=== PATIENT | female | born 1955 | race Caucasian/White ===

== ENCOUNTER → 2019-01-27 11:18 | Outpatient (CLI) | payer MEDICARE, OTHER, SELFPAY ==
--- NOTE | 2019-01-27 | DI.MG.S_ITS ---
BILATERAL DIGITAL SCREENING MAMMOGRAM 3D/2D WITH CAD: 01/27/2019 CLINICAL: Routine screening. Family history of breast cancer. Comparison is made to exams dated: 01/31/2016 mammogram, 01/29/2015 mammogram, 01/23/2014 mammogram, and 12/01/2011 mammogram - [facility]. The tissue of both breasts is heterogeneously dense. This may lower the sensitivity of mammography. Current study was also evaluated with a Computer Aided Detection (CAD) system. There is a round equal density focal asymmetry in the right breast at 12 o'clock middle depth. No other significant masses, calcifications, or other findings are seen in either breast. IMPRESSION: INCOMPLETE: NEEDS ADDITIONAL IMAGING EVALUATION The round equal density focal asymmetry in the right breast is indeterminate. A diagnostic mammogram and ultrasound is recommended. This exam was interpreted at Station ID: [id number]. NOTE: For mammograms, a report in lay terms will be sent to the patient. Approximately 15% of breast malignancies will not be visualized mammographically. In the management of a palpable breast mass, a negative mammogram must not discourage biopsy of a clinically suspicious lesion. Electronically Signed By: Taryn moore/jelena:01/27/2019 12:06:56 letter sent: Additional Imaging Needed ACR BI-RADS Category 0: Incomplete 3340F
== END ==
PROVIDERS: PCP Internal Medicine; Visit Provider Internal Medicine
DX: Z12.31 Encounter for screening mammogram for malignant neoplasm of breast (principal); Z80.3 Family history of malignant neoplasm of breast
CPT/HCPCS: 77063; 77067

== ENCOUNTER → 2019-02-13 13:32 | Outpatient (CLI) | payer MEDICARE, OTHER, SELFPAY ==
--- NOTE | 2019-02-13 | DI.US.S_ITS ---
ULTRASOUND OF RIGHT BREAST: 02/13/2019 CLINICAL: Patient returns today to evaluate a focal asymmetry in the right breast. Comparison is made to exams dated: 02/13/2019 mammogram, 01/27/2019 mammogram, 01/31/2016 mammogram, 01/29/2015 mammogram, and 01/23/2014 mammogram - [facility]. Color flow and real-time ultrasound of the right breast were performed. Kuhn scale images of the real-time examination were reviewed. There is a benign 0.7 cm x 0.7 cm x 0.7 cm round cyst with debris in the right breast at 11 o'clock middle depth 6 cm from the nipple. This correlates with mammography findings of a new asymmetry. Color flow imaging demonstrates that there is no vascularity present. There also is a stable benign 0.6 cm x 0.6 cm x 0.5 cm cyst with debris in the right breast at 12 o'clock posterior depth 8 cm from the nipple. This also correlates with mammography findings. Color flow imaging demonstrates that there is no vascularity present. IMPRESSION: BENIGN There is no sonographic evidence of malignancy. The 0.7 cm cyst with debris in the right breast at 11 o'clock middle depth corresponds to the new screening mammogram finding and is benign. The 0.6 cm cyst with debris in the right breast at 12 o'clock posterior depth is stable and benign. Return to annual mammogram screening schedule is recommended. Findings and recommendations were conveyed to the patient at time of exam. This exam was interpreted at Station ID: [id number]. Electronically Signed By: Taryn moore/:02/13/2019 17:11:26 letter sent: Normal Exam Ultrasound BI-RADS: 2 Benign
--- NOTE | 2019-02-13 | DI.MG.S_ITS ---
UNILATERAL RIGHT DIGITAL DIAGNOSTIC MAMMOGRAM 3D/2D WITH ADDITIONAL VIEWS: 02/13/2019 CLINICAL: Additional evaluation requested from prior study. Comparison is made to exams dated: 01/27/2019 mammogram, 01/31/2016 mammogram, and 01/29/2015 mammogram - [facility]. The tissue of right breast is heterogeneously dense. This may lower the sensitivity of mammography. There is a new round 9 mm equal density focal asymmetry in the right breast at 11 o'clock middle depth. This is seen in additional views. A 7 mm round mass has been stable compared to prior studies. No other significant masses or calcifications are seen in the breast. IMPRESSION: INCOMPLETE: NEEDS ADDITIONAL IMAGING EVALUATION The round equal density focal asymmetry in the right breast remains indeterminate. An ultrasound is recommended. This was performed immediately following this exam. This exam was interpreted at Station ID: [id number]. NOTE: For mammograms, a report in lay terms will be sent to the patient. Approximately 15% of breast malignancies will not be visualized mammographically. In the management of a palpable breast mass, a negative mammogram must not discourage biopsy of a clinically suspicious lesion. Electronically Signed By: Taryn moore/:02/13/2019 17:07:00 ACR BI-RADS Category 0: Incomplete 3340F
== END ==
PROVIDERS: PCP Internal Medicine; Visit Provider Internal Medicine
DX: R92.8 Other abnormal and inconclusive findings on diagnostic imaging of breast (principal); N60.01 Solitary cyst of right breast
CPT/HCPCS: 76642; 77065; G0279

== ENCOUNTER → 2020-01-29 08:01 | Outpatient (CLI) | payer MEDICARE, OTHER, SELFPAY ==
--- NOTE | 2020-01-29 08:16 | DI.MG.S_ITS ---
Patient Name: DONNA ARAIZA date: 1955 Sex: F Attending Physician: Xochitl Indications: Date: 01/29/2020 08:14 At the request of: ABHIJEET ALFONSO Procedure: MM screening mammo BI BILATERAL DIGITAL SCREENING MAMMOGRAM 3D/2D WITH CAD: 01/29/2020 CLINICAL: Routine screening. Family history of breast cancer. Comparison is made to exams dated: 01/27/2019 mammogram, 01/31/2016 mammogram, 01/29/2015 mammogram, 02/13/2019 ultrasound, and 01/23/2014 mammogram - [facility]. The tissue of both breasts is heterogeneously dense. This may lower the sensitivity of mammography. Current study was also evaluated with a Computer Aided Detection (CAD) system. No significant masses, calcifications, or other findings are seen in either breast. There has been no significant interval change. IMPRESSION: NEGATIVE There is no mammographic evidence of malignancy. A 1 year screening mammogram is recommended. This exam was interpreted at Station ID: [id number]. NOTE: For mammograms, a report in lay terms will be sent to the patient. Approximately 15% of breast malignancies will not be visualized mammographically. In the management of a palpable breast mass, a negative mammogram must not discourage biopsy of a clinically suspicious lesion. Electronically Signed By: Franco burch/jelena:01/29/2020 10:48:08 letter sent: Normal Exam ACR BI-RADS Category 1: Negative 3341F
== END ==
PROVIDERS: PCP Internal Medicine; Referring Provider Internal Medicine; Visit Provider Internal Medicine
DX: Z12.31 Encounter for screening mammogram for malignant neoplasm of breast (principal); Z80.3 Family history of malignant neoplasm of breast
CPT/HCPCS: 77063; 77067

== ENCOUNTER → 2020-03-11 08:31 | Outpatient (CLI) | payer MEDICARE, OTHER, SELFPAY ==
--- NOTE | 2020-03-11 | DI.MRI.S_ITS ---
PROCEDURE: MR SHOULDER RT WO CON INDICATIONS: OTHER SHOULDER LESIONS TECHNIQUE: Noncontrast oblique coronal T2 fast spin echo with fat saturation, oblique sagittal T1 spin echo and T2 fast spin echo with fat saturation, axial T1 spin echo and T2 fast spin echo with fat saturation through the shoulder. COMPARISON: [facility], CR, XR SHOULDER 2+ VIEWS RIGHT, 03/04/2020, 14:38. FINDINGS: Image quality: Excellent. Rotator cuff: There is moderate to severe partial thickness bursal sided tearing in the distal supraspinatus at its insertion involving posterior fibers. This measures approximately 0.5 cm in anteroposterior dimension. There is mild bursal sided partial-thickness tearing in the distal infraspinatus at its insertion. The subscapularis demonstrates moderate articular surface partial tearing distally at its insertion. No discrete full-thickness rotator cuff tear or tendon retraction. The teres minor appears intact. Sagittal images demonstrate no fatty muscle atrophy. Bones and bursae: No bone marrow contusions or fractures. There is moderate to severe acromioclavicular joint degeneration. The acromion demonstrates slight lateral downsloping, without an os acromiale. A small amount of subacromial-subdeltoid bursal fluid is present as well as mild edema along the anterior aspect of the supraspinatus muscle. Capsule and soft tissues: In the absence of intra-articular contrast, the labrum and glenohumeral ligaments appear intact. The long head of the biceps tendon demonstrates slight medial subluxation secondary to partial tearing of the subscapularis tendon . There is associated mild tendinopathy proximally but no evidence of rupture. IMPRESSION: 1. Moderate to severe partial-thickness bursal sided tearing in the distal supraspinatus. Mild bursal sided partial-thickness tearing is also demonstrated in the infraspinatus as well as articular sided partial-thickness tearing in the subscapularis. No discrete full-thickness rotator cuff tear or tendon retraction. 2. Moderate to severe acromioclavicular joint degeneration with a small amount of subacromial/subdeltoid bursal fluid. 3. Slight medial subluxation of the biceps tendon secondary to partial tearing of the subscapularis. Dictated by: Sid Perez M.D. on 03/11/2020 at 14:35 Approved by: Sid Perez M.D. on 03/11/2020 at 14:49
== END ==
PROVIDERS: PCP Internal Medicine; Referring Provider Orthopaedic Surgery; Visit Provider Orthopaedic Surgery
DX: M75.81 Other shoulder lesions, right shoulder (principal); M75.111 Incomplete rotator cuff tear or rupture of right shoulder, not specified as traumatic; M19.011 Primary osteoarthritis, right shoulder
CPT/HCPCS: 73221

== ENCOUNTER → 2020-07-15 10:47 | Outpatient (CLI) | payer MEDICARE, OTHER, SELFPAY ==
[2020-07-15 12:01] LABS: Erythrocyte Sedimentation Rate 15 MM/HR (0-20)
[2020-07-15 12:13] LABS: C-Reactive Protein Quant 1.6 mg/dL (<1.0)
== END ==
PROVIDERS: PCP Internal Medicine; Referring Provider Orthopaedic Surgery; Visit Provider Orthopaedic Surgery
DX: M25.511 Pain in right shoulder (principal)
CPT/HCPCS: 36415; 85651; 86140

== ENCOUNTER 2021-02-06 19:05 | Emergency (ER) | payer MEDICARE, OTHER, SELFPAY ==
[2021-02-06 19:07] VITALS: BP 175/78; PULSE 70; RESP 18; TEMP 36.8; O2SAT 98
[2021-02-06 20:10] VITALS: BP 194/91; PULSE 71; RESP 22; O2SAT 100
--- NOTE | 2021-02-06 20:25 | ED.BACK ---
HPI - Back Pain/Injury General Chief Complaint: Back Pain/Injury Stated Complaint: BACK PAIN Time Seen by Provider: 02/06/21 20:24 Source: patient Limitations: no limitations History of Present Illness HPI Narrative: This is a 66-year-old female comes with complaint of left-sided back pain. Patient states she has had symptoms for the last 2-3 weeks. Patient states she has been lifting and moving a lot of boxes they sold and other home then moved into a travel trailer and rhythm moving their lungs again. Patient states it is not midline it is more on the left side. It is spasming type pain that is worse with movement. She states when she sleeps at night her pain resolved so when she 1st wakes up in the morning and tries to get up and starts moving she has spasm and pain on that left side. She has been trying ibuprofen with minimal improvement. She wishes to avoid narcotics. She has had lower lumbar diskectomy surgery in 1995. She states this pain feels different. She has chronic calf and left foot numbness although she states it is a little bit worse than normal. She has not had any new saddle anesthesia. No loss of bowel or bladder control. She feels like that left leg is a little bit weaker but is able to ambulate. She is on medications for asthma and statin. Related Data Home Medications Medication Instructions Recorded Confirmed [MULTIVITAMIN] #0 12/14/10 11/22/18 albuterol sulfate 90 mcg/actuation 1 puff INH PRN PRN #8 gm 01/31/16 11/22/18 aerosol inhaler (Ventolin HFA) beclomethasone dipropionate 80 3 - 4 puff INH BID #1 inh 01/31/16 11/22/18 mcg/actuation aerosol inhaler (Qvar) conjugated estrogens 0.625 mg/gram 1 appful VAGINAL QWEEK #30 gm 01/31/16 11/22/18 vaginal cream (Premarin) salmeterol 50 mcg/dose blister 1 puff INH BID #0 inh 01/31/16 11/22/18 powder for inhalation (Serevent Diskus) simvastatin 20 mg tablet (Zocor) 20 mg PO HS #0 tab 01/31/16 11/22/18 Previous Rx's Medication Instructions Recorded prednisone 50 mg tablet 50 mg PO DAILY #5 tab 02/06/21 Allergies Allergy/AdvReac Type Severity Reaction Status Date / Time cefuroxime [CEFUROXIME] Allergy Mild Verified 11/22/18 10:02 neomycin [NEOMYCIN] Allergy Unknown EAR Verified 11/22/18 10:02 DROPS...UNSURE scopolamine [SCOPOLAMINE] AdvReac Intermediate HALLUCINATI Verified 11/22/18 10:02 ON codeine [CODEINE] AdvReac Mild VOMITING Verified 11/22/18 10:02 Review of Systems Review of Systems ROS Unobtainable: All systems reviewed & are unremarkable except as noted in HPI and below Patient History Social History Smoking Status: Never smoker Smoking Status: Never smoker Exam Narrative Exam Narrative: GENERAL: Alert and oriented x three, female in mild distress. Patient is increased pain with any sort of movement. She is lying on her back with her knees flex and feet flat on the cornea. HEENT: Head normocephalic, atraumatic, EOMI, pupils reactive, face symmetric, moist mucous membranes NECK: Supple, full range of motion CARDIOVASCULAR: Regular rate and rhythm without murmurs, rubs or gallops. RESPIRATORY: Breath sounds equal bilaterally, no wheezes rales or rhonchi. ABDOMEN: Soft, nontender. Normoactive bowel sounds all 4 quadrants. No guarding or rebound, rigidity, no mass : No CVA tenderness BACK: No cervical, thoracic or lumbar vertebral point tenderness. No saddle anesthesia. Patient has decreased range of motion. Patient's gait is normal. Rectal exam is deferred. Muscle strength is 5/5 in lower extremities, DTRs are 2/4 and lower extremities. Dorsalis pedis and tibialis pulses are 2+ and lower extremities. Sensation is intact in the lower extremities to light touch. EXTREMITIES: Normal range of motion, no clubbing or edema. Neurovascularly intact NEUROLOGICAL: Cranial nerves II through XII grossly intact. Moving all extremities. Patient had normal gait into the department. SKIN: Warm, dry, no petechiae, no rashes or lesions. Initial Vital Signs Initial Vital Signs: Vital Signs Temperature 98.3 F 02/06/21 19:07 Pulse Rate 70 02/06/21 19:07 Respiratory Rate 18 02/06/21 19:07 Blood Pressure 175/78 H 02/06/21 19:07 Pulse Oximetry 98 02/06/21 19:07 Course Orders Ordered: Discontinued Medications Diazepam (Diazepam 5 Mg Tablet) 10 mg PO NOW ONE Stop: 02/06/21 20:43 Last Admin: 02/06/21 20:47 Dose: 10 mg Documented by: PRASANTH Ketorolac Tromethamine (Ketorolac 30 Mg/Ml Vial) 30 mg IM NOW ONE Stop: 02/06/21 20:43 Last Admin: 02/06/21 20:47 Dose: 30 mg Documented by: PRASANTH Vital Signs Vital signs: Vital Signs - 8 hr 02/06/21 20:10 02/06/21 21:40 Pulse Rate 71 79 Respiratory Rate 22 18 Blood Pressure 194/91 H 185/83 H Pulse Oximetry 100 98 MDM - Back Pain/Injury MDM Narrative Medical decision making narrative: This is a 66-year-old female comes in with complaint of left lower back pain/spasm. Patient has had prior mid lower back pain with chronic paresthesias in the left foot and calf which are slightly worsened. Her exam does not show any red flag changes. Patient has been lifting and moving many boxes for the last 2-3 weeks which seems to have exacerbated her symptoms. After discussion at this time and felt the patient requires x-ray imaging and patient also feels comfortable with this. Was given Toradol as well as Valium which she found helpful. She has had sciatica in the past and feels like this is also flaring was given a course of steroids. Valium with plan to continue with ibuprofen and Tylenol as needed for pain. Discharge Plan Departure Patient Disposition: Home Clinical Impression: Lumbar back pain Instructions: DI for Low Back Pain Activity Restrictions/Additional Instructions: Follow-up with your primary care physician for recheck. You may take ibuprofen up to 800 mg every 8 hours and/or Tylenol up to a 1000 mg every 8 hours as needed for pain. Take Valium 1 tablet every 8 hours as needed for muscle spasm. This medication can make you sleepy do not drive, perform hazardous activities or make any major decisions while taking it. There is also prescription for steroids which may be helpful for any nerve impingement. Take this daily until gone. Prescription sent to [facility] in [place]. Please return for fevers, rapidly worsening or intractable pain, loss of bowel or bladder control, weakness, loss of sensation or inability to lift or move her leg or foot or other new or concerning symptoms. Prescriptions: New prednisone 50 mg tablet 50 mg PO DAILY Qty: 5 RF: 0 No Action [MULTIVITAMIN] Qty: 0 RF: 0 beclomethasone dipropionate [Qvar] 80 MCG/PUFF aerosol 3 - 4 puff INH BID Qty: 1 RF: 0 salmeterol [Serevent Diskus] 50 MCG blister with device 1 puff INH BID Qty: 0 RF: 0 albuterol sulfate [Ventolin HFA] 90 MCG/PUFF HFA aerosol inhaler 1 puff INH PRN PRNQty: 8 RF: 0 simvastatin [Zocor] 20 MG tablet 20 mg PO HS Qty: 0 RF: 0 conjugated estrogens [Premarin] 0.625 MG/GM cream 1 appful Vaginal QWEEK Qty: 30 RF: 0 Referrals: Gena Leung MD [Primary Care Provider] -
[2021-02-06] MEDS: diazePAM 5 MG TABLET 10 MG PO (20:47)
[2021-02-06] MEDS: KETOROLAC 30 MG/ML VIAL IM (20:47)
[2021-02-06 21:40] VITALS: BP 185/83; PULSE 79; RESP 18; O2SAT 98
== END 2021-02-06 21:41 | disposition home or self-care (01) ==
PROVIDERS: Emergency Provider Emergency Medicine; PCP Internal Medicine
DX: M54.5 Low back pain (principal)
CPT/HCPCS: 96372; 99283; J1885

== ENCOUNTER → 2021-02-10 10:40 | Outpatient (CLI) | payer MEDICARE, OTHER, SELFPAY ==
--- NOTE | 2021-02-10 | DI.MG.S_ITS ---
BILATERAL DIGITAL SCREENING MAMMOGRAM 3D/2D WITH CAD: 02/10/2021 CLINICAL: Routine screening. Family history of breast cancer. Comparison is made to exams dated: 01/29/2020 mammogram, 01/27/2019 mammogram, and 01/31/2016 mammogram - [facility]. The tissue of both breasts is heterogeneously dense. This may lower the sensitivity of mammography. Current study was also evaluated with a Computer Aided Detection (CAD) system. No significant masses, calcifications, or other findings are seen in either breast. There has been no significant interval change. IMPRESSION: NEGATIVE There is no mammographic evidence of malignancy. A 1 year screening mammogram is recommended. This exam was interpreted at Station ID: [id number]. NOTE: For mammograms, a report in lay terms will be sent to the patient. Approximately 15% of breast malignancies will not be visualized mammographically. In the management of a palpable breast mass, a negative mammogram must not discourage biopsy of a clinically suspicious lesion. Electronically Signed By: Sid lester/jelena:02/10/2021 12:19:41 letter sent: Normal Exam ACR BI-RADS Category 1: Negative 3341F
== END ==
PROVIDERS: PCP Internal Medicine; Referring Provider Internal Medicine; Visit Provider Internal Medicine
DX: Z12.31 Encounter for screening mammogram for malignant neoplasm of breast (principal); Z80.3 Family history of malignant neoplasm of breast
CPT/HCPCS: 77063; 77067